=== PATIENT | female | born 1960 | race Caucasian/White ===

== ENCOUNTER 2023-07-26 16:46 | Emergency (ER) | payer OTHER, SELFPAY ==
[2023-07-26] VITALS (10 sets, daily range): BP systolic 106–140; BP diastolic 57–78; PULSE 65–83; BMI 22.9
[2023-07-26 16:53] LABS: Glucose - Point of Care 139 mg/dl (70-99)
[2023-07-26 17:05] LABS: % Basophils 0.5 % (0-2); % Immature Granulocytes 0.2 % (0-0.5); % Lymphocytes 11.7 % (20.5-51.1); % Monocytes 3.5 % (1.7-9.3); % Neutrophils 84.1 % (42.2-75.2); Absolute Lymphocytes 0.7 10^3/uL (1.2-3.4); Absolute Monocytes 0.2 10^3/uL (0.1-0.6); Hematocrit 38.3 % (37.0-47.0); Hemoglobin 13.7 g/dL (12.0-16.0); Mean Corp Hgb Conc. 35.8 g/dL (33.0-37.0); Mean Corpuscular Hgb 31.7 pg (27.0-31.0); Mean Corpuscular Volume 88.7 fL (81.0-99.0); Mean Platelet Volume 10.5 fL (7.4-10.4); Nucleated Red Blood Cells % 0 %; Platelet Count 179 10^3/uL (130-400); Red Blood Cell Count 4.32 10^6/uL (4.20-5.40); Red Cell Dist. Width 12.1 % (11.5-14.5)
[2023-07-26 17:22] LABS: ALT (SGPT) 28 U/L (0-35); AST (SGOT) 37 U/L (14-36); Albumin 4.4 g/dl (3.5-5.0); Alkaline Phosphatase 77 U/L (38-126); Blood Urea Nitrogen 19 mg/dl (7-17); Calcium 9.6 mg/dl (8.4-10.2); Carbon Dioxide 24 mmol/L (22-30); Chloride 103 mmol/L (98-107); Estimated Creatinine Clearance 81 ml/min; Glucose 140 mg/dl (70-99); Sodium 135 mmol/L (135-145); Total Bilirubin 0.6 mg/dl (0.2-1.3); Total Protein 6.6 g/dl (6.3-8.2); eGFR > 60.00
--- NOTE | 2023-07-26 18:41 | ED.GENMED ---
History of Present Illness
General
Chief Complaint: Dizziness
Source: patient
Exam Limitations: none
Time Seen by Provider: 07/26/23 17:54
Nursing documentation reviewed up to this point in time: agreed with
Travel History
Have you had any contact with someone who has COVID-19?: No
Do you have any symptoms of coronavirus? Fever > 100 degrees, chills, cough, shortness of breath, sore throat, loss of taste or smell, muscle aches, or headache?: No
History of Present Illness
History of Present Illness:
3-year-old female who reports that she has had a history of similar dizziness episodes but never been diagnosed formally with vertigo presents for feeling of dizziness starting at 930 this morning. Patient says she woke up about 3 hours before was
feeling well. She had eaten breakfast and was folding laundry when she suddenly felt the symptoms. She says she felt a mixture between lightheadedness and room spinning dizziness. She went and laid down on the couch and she did end up falling
asleep for few hours. Around 1 PM her ex- came to the house and she got up to answer the door and says that she 'went down.' She says she did pass out when she just was having trouble walking because of her balance. She laid on the ground
for about an hour with her ex by her side he was trying to get her up but every time she got up she would dry heave. He said she started having some shakes so he called 911. Patient now feels better lying in the bed, she has gotten a liter
of fluids. She has not had any headache, sore throat, fever, focal weakness or numbness or tingling in her arms or legs, chest pain or shortness of breath. Patient has no neck pain and she is not visited a chiropractor or had any head trauma or
neck trauma recently. The previous time that she had spinning sensation dizziness she stayed home for a few days and ultimately resolved by the time she saw her family doctor she did not have any symptoms. They told her it could have been vertigo
but she never had any treatment for it or an evaluation for it.
Past History
Past History
ED Past Medical History: None
ED Past Surgical History: None
Social History
Tobacco: Non-smoker
Alcohol: Occasional
Personal: Single
Living: with family
Review of Systems
Review of Systems
Allergies reviewed?: Yes
All Other Systems: Not applicable
Phy Exam
Physical Exam
Physical Exam:
GENERAL: Alert nontoxic appearing, awkae and alert
EYE: pupils equal and reactive
head: ncat
NECK: Supple
ENT: b/l TM s clear, pharynx erythematous but no tonsillar hypertrophy or exudates
CARDIAC: Regular rate and rhythm, no edema
LUNGS: Clear breath sounds bilaterally, no acute respiratory distress, no wheezes/rales/rhonchi, occ cough
ABDOMEN: Soft, without focal tenderness, no r/g, no cvat, normal bowel sounds
NEUROLOGICAL: Alert and oriented, no focal neuro deficits, cn intact, strength and sensation intact, finger to nose normal, neg pronator drift
SKIN: Warm and dry, skin intact.
MUSCULOSKELETAL: No edema, well perfused.
PSYCH: Normal and appropriate interaction.
Course
Orders/Labs/Results
Orders:
Orders
07/26/23 16:50
Electrocardiogram (*1) Urgent
Reason for Study: Vertigo / Dizzy
EKG- Treatment ONCE
07/26/23 16:54
Complete Blood Count/With Diff Urgent
Comprehensive Metabolic Panel Urgent
07/26/23 18:20
Orthostatic VS- Treatment ONCE
Meclizine [Antivert] 25 mg PO NOW STA
Ondansetron Injectable [Zofran] 4 mg IV NOW STA
07/26/23 18:21
CT Head W/o Iv Contrast Urgent
Comment:
Reason For Exam: dizziness
07/26/23 19:08
0.9% Sodium Chloride 1000 ml [Nss] 1,000 ml IV BOLUS
Abnormal Lab Results
07/26/23 07/26/23
16:52 16:54
MCH 31.7 H pg
(27.0-31.0)
MPV 10.5 H fL
(7.4-10.4)
Absolute Lymphs (auto) 0.7 L 10^3/uL
(1.2-3.4)
Neutrophils % 84.1 H %
(42.2-75.2)
Lymphocytes % 11.7 L %
(20.5-51.1)
BUN 19 H mg/dl
(7-17)
Creatinine 0.5 L mg/dL
(0.6-1.0)
Glucose 140 H mg/dl
(70-99)
AST 37 H U/L
(14-36)
POC Glucose 139 H mg/dl
(70-99)
07/26/23 16:54
07/26/23 16:54
Vital Signs
Initial and Last Documented VS:
Initial Vital Signs
Pulse Resp BP Pulse Ox
58 16 124/78 100
07/26/23 16:50 07/26/23 16:50 07/26/23 16:50 07/26/23 16:50
Last Documented Vital Signs
Temp Pulse Resp BP Pulse Ox
97.8 F 71 19 123/77 97
07/26/23 16:52 07/26/23 21:15 07/26/23 21:15 07/26/23 21:00 07/26/23 18:15
MDM/Problems Addressed
Differential Diagnosis Includes:
vertigo, orthostasis, posterior circulation stroke
MDM/Problems Addressed:
63 y/o F with reported self diagnosed vertigo years ago never treated
here with dizziness that started suddenly while folding laundry
sh ehad nauea and vomting associated with it
she laid down for a few hours before someone came to help her and when she got up she had trouble walking due to dizziness and vomiting
laid onthe ground fo ra while, was awake and alert but a little shaky so then ultimately 911 called
received NSS en route and feels better lying down
sypmtoms worse with upright
can turn her head in the stretcher
no fever, uri symptoms, hadache, head trauma, ear ache, sore throat, focal weakness, numbness, vision changes, nekc pain
on exam she appears dehydrated mm
vitals stable
no nystagmus appreciated
SANDRA HALLPIKE WAS ACTUALLY NEG
she had more symptosm with sitting upright in the strecher than with turning head side to side
orthostatics were slightly positiove with HR
labs appreciated
ct head neg
given zofran, meclizine
ekg normal
reassessed azfter 2n sizing end bander ns
feels much better
ambulated to BR steadily
d/w manisha ttending, ok with d/c home since pt symptoms greatly improved
*Critical Care Note
Total Time (30-74mins, 75-104mins- exclusive of procedures): Not Applicable
ED Attending Note
-
Portions of this chart may have been created with voice recognition software.� Occasional wrong word or��sound alike� substitutions may have occurred due to the inherent limitations of voice recognition software.
Discharge Plan
Departure
Patient Disposition: Home (Routine Discharge)
Date of Disposition: 07/26/23
Time of Disposition: 21:17
Patient with high blood pressure during this ER visit?: No
Condition: Fair
Covid-19: Not Applicable
Discharge Problem:
Dehydration, Dizziness
Instructions: Vertigo (a Type of Dizziness) (DC), Dehydration, Adult ED
Prescriptions:
New
meclizine 25 mg tablet
25 mg PO TID PRN (Reason: dizziness) Qty: 15 0RF
Referrals:
Negar Souza MD [Family Provider] - Follow up in 2-3 days
Activity Restrictions/Additional Instructions:
Not sure entirely the cause of your dizziness but you did get better with fluids and meclizine. Your CAT scan was normal and you are able to walk around.
You should definitely return if your symptoms get any worse but in the meantime stay hydrated. Use meclizine 25 mg 2-3 times a day as needed for the next 3 to 5 days. It is very common for vertigo symptoms to linger or you feel a little bit off
balance. If this is worsening you should return immediately. Also return for any headache, weakness, numbness or tingling, fever or chills, neck pain etc. Follow-up with your doctor this week.
Interventions
Interventions:
*Risk Screen - Suicide Last Done: 07/26/23 17:11
*General Assessment Last Done: 07/26/23 21:53
*Neglect/Abuse Screening Last Done: 07/26/23 17:11
ED- Fall Risk Assessment Last Done: 07/26/23 17:11
*ED COVID-19 Vaccine History Last Done: 07/26/23 21:53
*Nursing Disposition Last Done: 07/26/23 21:53
ED- Neurological Assessment Last Done: 07/26/23 17:11
ED- Cardiac Assessment Last Done: 07/26/23 17:11
ED Swallowing Screen Last Done: 07/26/23 18:30
Discharge Date and Time
Discharge Date/Time: 07/26/23 21:54
Print Language: [id number]
[2023-07-26] MEDS: ZOFRAN 4 MG IV (19:01)
[2023-07-26] MEDS: ANTIVERT 25 MG PO (19:02)
[2023-07-26] MEDS: NSS 1000 IV (19:11)
== END 2023-07-26 21:54 | disposition home or self-care (01) ==
LOC: EMR 16:46
PROVIDERS: EMERGENCY PHYSICIAN Emergency Medicine; FAMILY PHYSICIAN Family Medicine
DX: E86.0 Dehydration (principal)
CPT/HCPCS: 99285; 96374; 96361; 70450; 80053; 82962; 85025; 93005

== ENCOUNTER → 2023-08-18 09:28 | Outpatient (REF) | payer OTHER, SELFPAY | LOC: RCS 09:28 | PROVIDERS: ATTENDING PHYSICIAN Nurse Practitioner Family; FAMILY PHYSICIAN Family Medicine; OTHER PHYSICIAN Internal Medicine Rheumatology | DX: R00.2 Palpitations (principal); M81.0 Age-related osteoporosis without current pathological fracture; R29.890 Loss of height | CPT/HCPCS: 72072; 72100; 93225; 93226 ==

== ENCOUNTER → 2024-02-25 10:21 | Outpatient (REF) | payer OTHER, SELFPAY | LOC: UCDH 10:21 | PROVIDERS: ATTENDING PHYSICIAN Emergency Medicine | DX: M89.8X1 Other specified disorders of bone, shoulder (principal) | CPT/HCPCS: 73000 ==

== ENCOUNTER → 2024-04-09 14:53 | Outpatient (REF) | payer OTHER, SELFPAY | LOC: WDC 14:53 | PROVIDERS: ATTENDING PHYSICIAN Obstetrics & Gynecology; FAMILY PHYSICIAN Family Medicine | DX: Z12.31 Encounter for screening mammogram for malignant neoplasm of breast (principal) | CPT/HCPCS: 77063; 77067 ==

== ENCOUNTER → 2024-04-17 10:35 | Outpatient (REF) | payer OTHER, SELFPAY | LOC: RAD 10:35 | PROVIDERS: ATTENDING PHYSICIAN Internal Medicine Rheumatology; FAMILY PHYSICIAN Family Medicine | DX: Z13.820 Encounter for screening for osteoporosis (principal); M81.0 Age-related osteoporosis without current pathological fracture | CPT/HCPCS: 77080 ==

== ENCOUNTER 2024-06-01 06:16 | Day surgery (SDC) | payer OTHER, SELFPAY | END 2024-06-01 09:16 | disposition home or self-care (01) | LOC: GI 06:16 | PROVIDERS: ATTENDING PHYSICIAN Internal Medicine; FAMILY PHYSICIAN Family Medicine | DX: Z12.11 Encounter for screening for malignant neoplasm of colon (principal); Z80.0 Family history of malignant neoplasm of digestive organs | CPT/HCPCS: G0105 ==